=== PATIENT | male | born 1960 | race African-American/Black ===

== ENCOUNTER 2019-10-08 20:04 | Inpatient (IN) | payer OTHER ==
[~2019-10-08] VITALS: Ht 182.9 cm; Wt 97.4 kg
[2019-10-08 20:04] VITALS: BP 148/89
[2019-10-08 20:14] LABS: ABSOLUTE NEUTROPHILS 3.3 thou/uL (1.4-8.2); BASOPHILS 1.4 % (0.0-2.0); EOSINOPHILS 1.1 % (0.0-3.0); HEMOGLOBIN 11.3 gm/dL (14.0-18.0); LYMPHOCYTES 45.5 % (24.0-44.0); MCH 25.8 pg (26.0-34.0); MCHC 32.2 g/dL (28.0-37.0); MCV 80.1 fL (80.0-100.0); MONOCYTES 9.3 % (1.0-8.0); PLATELET COUNT 398 thou/uL (150-400); POLYS 42.7 % (36.0-66.0); RBC 4.38 mil/uL (4.50-6.00); RDW 16.7 % (10.5-14.5); WBC 7.7 thou/uL (4.0-11.0)
[2019-10-08 20:23] LABS: ANION GAP 13 mmol/L (7-16); BUN 15 mg/dL (7-18); CALCIUM 8.4 mg/dL (8.5-10.1); CHLORIDE 104 mmol/L (98-107); CO2 24 mmol/L (21-32); GLUCOSE 129 mg/dL (74-106); POTASSIUM 3.2 mmol/L (3.5-5.1); SODIUM 141 mmol/L (136-145)
[2019-10-08 20:33] LABS: ALBUMIN 3.6 g/dL (3.4-5.0); SGOT 17 U/L (15-37); SGPT 25 U/L (30-65); TOTAL BILIRUBIN 0.1 mg/dL (<0.1-1.0); TOTAL PROTEIN 7.4 g/dL (6.4-8.2); TROPONIN-I <0.06 ng/mL (<0.06)
[2019-10-08 23:52] VITALS: BP 168/88
[2019-10-08 23:54] VITALS: BP 180/93
[2019-10-09] VITALS (18 sets, daily range): BP systolic 120–199; BP diastolic 66–129
[2019-10-09] MEDS ORDERED: CREON DR 12,001 EACH PO ×2 (01:29→15:11)
[2019-10-09] MEDS ORDERED: ASA81BEC PO (01:30)
[2019-10-09] MEDS ORDERED: VITAMIN B-121000 MC2 SUBLING (01:30)
[2019-10-09] MEDS ORDERED: DILTIAZEM ER180 M2 PO (01:31)
[2019-10-09] MEDS ORDERED: VITAMIN D325 MC1 PO (01:39)
[2019-10-09] MEDS ORDERED: IMDUR 60 MG TAB60 M1 PO (01:41)
[2019-10-09] MEDS ORDERED: TRICOR48 MG PO (01:42)
[2019-10-09] MEDS ORDERED: PANTOPRAZOLE SO40 M1 PO (01:42)
[2019-10-09] MEDS ORDERED: PLAVIX 75 MG TA75 MG PO (01:43)
[2019-10-09] MEDS ORDERED: HYDROCHLOROTHIA25 M1 PO (01:43)
[2019-10-09] MEDS ORDERED: COREG25 M1 PO (01:44)
[2019-10-09] MEDS ORDERED: LYRICA 50 MG50 MG PO (01:45)
[2019-10-09] MEDS ORDERED: COZAAR 25 MG TA25 MG PO (01:46)
[2019-10-09] MEDS ORDERED: BUPROPION XL300 MG PO (01:47)
--- NOTE | 2019-10-09 02:33 | NUR ---
PT WAS AN ER ADMIT. HE PRESENTED WITH CHEST PAIN FROM HOME. PT CONTINUED TO HAVE CHEST PAIN UPON ARRIVAL TO THE FLOOR WITH VOMITING. PT RATES CHEST PAIN AT AT 10. PHYSICAL THERAPY NURSE PRACTITIONER NOTITED, EKG OBTAINED WHICH SHOWED SINUS TACHCARDIA. NITROGLYCERIN AND MORPHINE ADMINISTERED TO PT. CARDIOLOGY NOTIFIED. NO ORDERS RECEIVED. AFTER THREE DOSES OF NITROGLYCERIN, PT VERBALIZES RELIEF. PT IS STABLE. PT IS ALERT AND ORIENTED. PT IS STABLE. ADMISSION ASSESSMENT AND EDUCATION COMPLETED. LOW POTASSIUM NOTED AND IS REPLACED. PT IS NPO. SCHEDULED MEDS ADMINISTERED TO PT. TOLERTED PO INTAKE. MONITOR PATIENT THROUGHOUT THE NIGHT. NO FURTHER NEEDS REQUESTED AT THIS TIME.
[2019-10-09 04:58] LABS: ANION GAP 11 mmol/L (7-16); BUN 13 mg/dL (7-18); CALCIUM 8.9 mg/dL (8.5-10.1); CHLORIDE 103 mmol/L (98-107); CHOLESTEROL 148 mg/dL (<200); CO2 26 mmol/L (21-32); CREATININE 0.9 mg/dL (0.7-1.3); GLUCOSE 168 mg/dL (74-106); HDL CHOLESTEROL 19 mg/dL (>40); POTASSIUM 3.5 mmol/L (3.5-5.1); SODIUM 140 mmol/L (136-145); TC:HDL 7.8 Ratio (Not establshd); TRIGLYCERIDE 700 mg/dL (<150); TROPONIN-I 0.11 ng/mL (<0.06); VLDL 140 mg/dL (<40)
[2019-10-09 05:49] LABS: SERUM ASSESSMENT Clear
[2019-10-09] MEDS ORDERED: BENICAR40 MG PO (10:02)
[2019-10-09] MEDS ORDERED: ASPIRIN325 PO (10:02)
--- NOTE | 2019-10-09 10:26 | CATHLAB ---
[facility] [address] [place] [address] INVASIVE PROCEDURE REPORT Name: CELIO FLYNN Room #: 218-P ADM IN M.R.#: [id number] Admission: 10/08/19 Attend Phys: Breanna Osborne Discharge: Date of : 62 Report #: [id number] THIS REPORT FOR: cc: Bola Jeff MD, Jan MD Lundgren, Craig H. MD [facility] ~ APPROVED REPORT Study performed: 10/09/2019 07:51:19 Patient Details Patient Status: In-Patient Room #: The patient is a 59 year-old male Event Personnel Dutch Johnson Sales Team Manager, Ilana Loyd RTR, FILM LIBRARIAN Monitor, Danie Mcarthur RN, Kenzie Ornelas Procedures Performed Art Access - R femoral artery* Left Heart Cath w/or w/o Coronaries [id number] [facility] LUPE Place w/wo Plasty Single LAD 540983 LUPE Place w/wo Plasty Single RCA 100683 26256 Initial Mod Sed Same Phys/QHP Gr5y 598724 21147 Mod Sed Same Phys/QHP Ea 596940 Hemostasis w/ Mynx 12834 Mod Sed Same Phys/QHP Ea 424463 80782 Mod Sed Same Phys/QHP Ea 507658 69153 Mod Sed Same Phys/QHP Ea 663040 Indication Chest pain Procedure Narrative The Right Groin^ was infiltrated with 1% Lidocaine subcutaneous anesthesia. A PINNACLE 6FR Sheath #[id number] sheath was inserted into the RFA^. Coronary angiography was performed using coronary diagnostic catheters. The right coronary system was accessed and visualized with a JR4 catheter. The left coronary system was accessed and visualized with a JL4 catheter. The left ventricle was accessed and visualized with a angled pigtail catheter. Left ventricular/Aortic Valve gradient assessed via catheter pullback. Left ventriculogram was performed in 30 degree projection. Closure device was deployed with a 6 Fr MYNXGRIP 6/7F #[id number]. The patient tolerated the procedure well and there were no complications associated with the procedure. There was no hematoma. Intraoperative Conscious Sedation [facility] [address] [place] [address] INVASIVE PROCEDURE REPORT Name: CELIO FLYNN Room #: 218-P [facility] IN .R.#: [id number] Admission: 10/08/19 Attend Phys: Breanna Moses Discharge: Date of : 62 Report #: [id number] Sedation start time: 08:06 Case end Time: 09:37 Fentanyl 200 mcg Versed 3 mg Fluoro Time: 9.49 minutes Dose: DAP 70424.80 cGycm2 1567 mGy Contrast Type and Amount: Omnipaque 235 ml Coronary Angiography The patient's coronary anatomy is right dominant. Diagnostic Cath Left Main Normal left main LAD Proximal LAD stent with mild intrastent plaquing. Tubular 30 to 40% proximal LAD stenosis, proximal to the old stent. Severe diffuse disease with several high-grade 99% stenoses in the midportion of the LAD Diagonal 1 Moderate sized first diagonal branch with 50% ostial stenosis Circumflex Large but nondominant circumflex OM1 Moderate sized first marginal branch with mild proximal plaquing, 20-30% OM2 Small terminal marginal branch, angiographically normal Right Coronary Dominant right coronary with previously placed mid vessel stent, 85% IntraStent stenosis 50% distal right coronary stenosis R PDA Moderate size posterior descending with mild plaquing RPLV "Thready" posterior lateral branch, small in caliber, diffusely diseased Left Ventriculography The left ventricle is normal in size with abnormal contractility. The left ventricular ejection fraction is estimated to be 40-45%. Left ventricular wall motion abnormalities are present. There is no mitral insufficiency. Hypokinesis involving the distal anterolateral, apical, and inferoapical finnegan. Hemodynamics The aortic pressure is 171/88 mmHg with a mean of 123 mmHg. The left ventricular pressure is 199/7 mmHg with a mean of mmHg. The left ventricular end diastolic pressure is 39 mmHg. PCI Technique Lesion Anticoagulation was achieved with Heparin, Integrilin. Patient was preloaded with Plavix. Percutaneous coronary intervention was [facility] [address] [place] [address] INVASIVE PROCEDURE REPORT Name: CELIO FLYNN Room #: 218-P [facility] IN M.R.#: [id number] Admission: 10/08/19 Attend Phys: Breanna Moses Discharge: Date of : 62 Report #: [id number] performed on the mid left anterior descending artery segment. The lesion stenosis prior to intervention was 99% with DAVON 2 flow. A LAUNCHER 6FR EBU 3.5 #[id number] Guide Catheter was used to engage the ostium. A Luge Wire .014 x 182CM #[id number] Interventional Guidewire was used to cross the lesion. BALLOON DILATION A Balloon catheter Euphora RX 2.0 x 15 #[id number] was inserted and inflated up to 8.00atm for 27seconds. Additional Inflation: 8.00atm for 29seconds. Additional Inflation: 8.00atm for 31seconds. Additional Inflation: 8 jose for 32 seconds Additional Inflation: 10 jose for 31 seconds STENT DEPLOYMENT A drug-eluting stent RESOLUTE TOMMIE RX 2.5 X 38 #[id number] was inserted and inflated up to 15.00atm for 30seconds. POST STENT DEPLOYMENT BALLOON DILATION A Balloon catheter TREK NC RX 2.5 X 15 #[id number] was inserted and inflated up to 16.00atm for 30seconds. Additional Inflation: 22.00atm for 38seconds. Additional Inflation: 22.00atm for 32seconds. Additional Inflation: 22 jose for 30 seconds Final angiography reveals 0 % stenosis with DAVON 3 flow. PCI Technique Lesion 2 Percutaneous Coronary Intervention was performed on the mid right coronary artery. The lesion stenosis prior to intervention was 85% with DAVON 3 flow. A LAUNCHER 6FR JR 4 #[id number] Guide Catheter was used to engage the ostium. A Luge Wire .014 x 182CM #[id number] Interventional Guidewire was used to cross the lesion. Balloon Dilation A Balloon catheter TREK NC RX 2.5 X 15 #[id number] was inserted and inflated up to 12.00atm for 43seconds. Stent Deployment A drug-eluting stent RESOLUTE TOMMIE RX 3.0 X 26 #[id number] was inserted and inflated up to 15.00atm for 36seconds. Post Stent Deployment Balloon Dilation A Balloon catheter TREK NC RX 3.0 X 15 #[id number] was inserted and inflated up to 18.00atm for 29seconds. Additional Inflation: 18.00atm for 30seconds. Additional Inflation: 20.00atm for 26seconds. Final angiography reveals 0 % stenosis with DAVON 3 [facility] [address] [address] INVASIVE PROCEDURE REPORT Name: CELIO FLYNN Room #: 218-P ADM IN M.R.#: [id number] Admission: 10/08/19 Attend Phys: Breanna Moses Discharge: Date of : 62 Report #: [id number] flow. Conclusion 1. Moderate left ventricular dysfunction with distal anterolateral, apical, and inferoapical hypokinesis. Ejection fraction 40-45% 2. Normal left main 3. Critical, long mid LAD stenosis, treated with a 2.5 x 38 mm Resolute stent dilated to close to 2.75 mm 4. Mild plaquing in a moderate sized nondominant circumflex 5. Severe mid right coronary stenosis within a remotely placed mid right coronary stent. Successfully ballooned and restented with a 3.0 x 26 mm Resolute stent Recommendations Smoking Cessation Cardiac Rehabilitation Referral Aggressive Medical Therapy <ELECTRONICALLY SIGNED> By: Dutch Johnson MD, FACC 10/09/19 1024 1024 1024 Dutch Johnson MD, FACC /INF
--- NOTE | 2019-10-09 13:55 | 2DMMODE ---
[facility] [place] [address] 2 D/M-MODE ECHOCARDIOGRAM Name: CELIO FLYNN Room #: 218-P ADM IN M.R.#: [id number] Admission: 10/08/19 Attend Phys: Breanna Osborne Discharge: Date of : 62 Report #: [id number] THIS REPORT FOR: cc: Bola Jeff MD,Bola Johnson,Dutch Tristan MD [facility] ~ APPROVED REPORT Study performed: 10/09/2019 12:57:42 EXAM: Comprehensive 2D, Doppler, and color-flow Echocardiogram Patient Location: Bedside Room #: 218 Status: routine BSA: 2.20 HR: 92 bpm BP: 155/82 mmHg Rhythm: NSR Other Information Study Quality: Good Indications Chest Pain status post PCI today. Hx: CT, stents, PVD, HTN, HLP, tobacco abuse. Echo Enhancing Agent Indication: Endocardial border delineation Agent(s) / Amount(s) Used: Optison 7 cc 2D Dimensions RVDd: 34.77 mm IVSd: 10.01 (7-11mm) LVOT Diam: 22.20 (18-24mm) LVDd: 45.85 mm PWd: 9.38 (7-11mm) LVDs: 30.55 (25-40mm) Aortic Root: 36.63 mm Volumes Left Atrial Volume (Systole) Single Plane 4CH: 34.70 mL Single Plane 2CH: 44.65 mL LA ESV Index: 19.00 mL/m2 [facility] [address] [place] [address] 2 D/M-MODE ECHOCARDIOGRAM Name: CELIO FLYNN Room #: 218-P ADM IN M.R.#: [id number] Admission: 10/08/19 Attend Phys: Breanna Moses Discharge: Date of : 62 Report #: [id number] Aortic Valve AoV Peak Ari.: 1.39 m/s AO Peak Gr.: 7.72 mmHg LVOT Max P.90 mmHg LVOT Max V: 1.11 m/s JUANCARLOS Vmax: 3.08 cm2 Mitral Valve E/A Ratio: 0.6 MV Decel. Time: 253.32 ms MV E Max Ari.: 0.57 m/s MV A Ari.: 0.95 m/s MV PHT: 73.46 ms IVRT: 94.58 ms Pulmonary Valve PV Peak Ari.: 0.89 m/s PV Peak Gr.: 3.15 mmHg Pulmonary Vein P Vein S: 0.57 m/s P Vein A: 0.31 m/s P Vein D: 0.39 m/s P Vein A Dur.: 100.3 msec P Vein S/D Ratio: 1.46 Tricuspid Valve RAP Estimate: 5.00 mmHg Left Ventricle The left ventricle is normal size. There is normal left ventricular wall thickness. Left ventricular systolic function is mildly reduced. False tendon at or near the apex. LVEF is 50%. Hypokinesis involving the distal septum and apex Mild diastolic dysfunction Right Ventricle The right ventricle is normal size. The right ventricular systolic function is normal. Atria The left atrium size is normal. The right atrium size is normal. Aortic Valve The aortic valve is normal in structure. No aortic regurgitation is present. There is no aortic valvular stenosis. Mitral Valve The mitral valve is normal in structure. There is no mitral valve regurgitation noted. No evidence of mitral valve stenosis. [facility] [address] [place] [address] 2 D/M-MODE ECHOCARDIOGRAM Name: CELIO FLYNN Room #: 218-P ADM IN M.R.#: [id number] Admission: 10/08/19 Attend Phys: Breanna Moses Discharge: Date of : 62 Report #: [id number] Tricuspid Valve The tricuspid valve is normal in structure. There is no tricuspid valve regurgitation noted. Unable to assess PA pressure. Pulmonic Valve The pulmonary valve is normal in structure. Trace pulmonic regurgitation. Great Vessels The aortic root is normal in size. The ascending aorta is normal in size. IVC is normal in size and collapses >50% with inspiration. Pericardium There is no pericardial effusion. <Conclusion> Left ventricular systolic function is mildly reduced. False tendon at or near the apex. LVEF is 50%. Hypokinesis involving the distal septum and apex Mild diastolic dysfunction The aortic valve is normal in structure. No aortic regurgitation or stenosis The mitral valve is normal in structure. No mitral valve regurgitation. Unable to assess pulmonary artery pressure. There is no pericardial effusion. <ELECTRONICALLY SIGNED> By: Dutch Johnson MD, FACC 10/09/19 1353 1353 1353 Dutch Johnson MD, FACC /INF
--- NOTE | 2019-10-09 16:08 | NUR ---
Chart reviewed and case discussed with the care team. University Registrar visited with the pt via phone this afternoon. Pt had heart cath this am with 2 stents. The pt indicates that he is normally indep with gait and adl's. He has a long cardiac hx and gets all of his medical care through the [facility]. He has been on SS disability since 2008. He does not have [place] medicaid as he can not afford the spend down. [facility] and several specialist there including cardiology. He denies any dc needs or concerns and is hoping he can go home tomorrow. [facility]. No cm interventions noted at this time. Will have [facility] fax a copy of [facility].
--- NOTE | 2019-10-09 17:25 | NUR ---
ASSUMED CARE 0700, ALERTS X4, FROM HOME. ADMITTED FOR CHEST PAIN, CARDIAC STENT PLACED LED AND RCA. RIGHT GROIN SIGHT. COMPLIED WITH POST CARDIAC CARE. DENIES CHEST PAIN, DENIES SOB, GROIN SITE C/D/I, VSS. PT TO DC HOME WITH SELF CARE IN MORNING. SCRIPT ON CHART, HOME MEDS IN PHARMACY. PERSONAL ITEMS IN REACH. CALLS FOR ASSISTANCE.
[2019-10-10 00:45] VITALS: BP 156/79
[2019-10-10 02:07] LABS: GLYCOHEMOGLOBIN (HGB A1C) 5.6 % (4.8-5.6)
[2019-10-10 03:41] LABS: HEMATOCRIT 35.3 % (42.0-52.0); HEMOGLOBIN 11.1 gm/dL (14.0-18.0); MCH 25.2 pg (26.0-34.0); MCHC 31.4 g/dL (28.0-37.0); MCV 80.1 fL (80.0-100.0); RBC 4.4 mil/uL (4.50-6.00); RDW 16.8 % (10.5-14.5); WBC 11.3 thou/uL (4.0-11.0)
[2019-10-10 04:04] LABS: ALBUMIN 3.2 g/dL (3.4-5.0); CALCIUM 8.9 mg/dL (8.5-10.1); CREATININE 0.9 mg/dL (0.7-1.3); POTASSIUM 3.9 mmol/L (3.5-5.1); TOTAL BILIRUBIN 0.2 mg/dL (<0.1-1.0); TROPONIN-I 0.57 ng/mL (<0.06)
[2019-10-10 04:45] VITALS: BP 166/84
--- NOTE | 2019-10-10 07:11 | NUR ---
ASSUME CARE 1900. PT/VITALS STABLE. DENIES ANY PAIN. TOLERATES ACTIVITY WELL. PT IS UP AD LI AND INDEPENDENT. ASSESSMENT CHARTED. PROGRESSING WELL WITH POC. SR ON MONITOR. ADEQUATE REST WITH NO DISTRESS NOTED THROUGH THE NIGHT. PLAN IS POSSIBLE DISCHARGE TODAY. WILL CONTINUE TO MONITOR AND FOLLOW WITH POC
[2019-10-10 08:00] VITALS: BP 152/82
[2019-10-10] MEDS ORDERED: GLUCOPHAGE500 MG PO (11:47)
[2019-10-10] MEDS ORDERED: ACETAMINOPHEN325 M1 PO (11:47)
[2019-10-10] MEDS ORDERED: BENICAR40 MG PO (11:47)
--- NOTE | 2019-10-10 11:48 | EKG ---
[facility] [place] [address] ELECTROCARDIOGRAM REPORT Name: CELIO FLYNN Room #: 218-P ADM IN M.R.#: [id number] Admission: 10/08/19 Attend Phys: Breanna Osborne Discharge: Date of : 62 Report #: [id number] THIS REPORT FOR: cc: Bola Jeff MD, Jan MD Couchonnal,Kennedy Vasques MD ~ THIS REPORT FOR: //name// [facility] ED Test Date: 2019-10-08 Test Time: 20:18:16 Pat Name: CELIO FLYNN Department: Room: [facility] Gender: M Scale Clerk: [facility] : 1960 Requested By: Adrián Calderon Order Number: [id number] MD: Kennedy Alcala Measurements Intervals [place] Rate: 103 P: 74 [place]: 134 QRS: 63 QRSD: 97 T: 64 QT: 341 QTc: 447 Interpretive Statements Sinus tachycardia Nonspecific repol abnormality, lateral leads No previous ECG available for comparison Electronically Signed On 10-10-2019 11:46:39 CDT by Kennedy Alcala [email or web address] <ELECTRONICALLY SIGNED> By: Kennedy Alcala MD 10/10/19 1146 17 17 Kennedy Alcala MD /MARTI
--- NOTE | 2019-10-10 11:48 | EKG ---
[facility] [place] [address] ELECTROCARDIOGRAM REPORT Name: CELIO FLYNN Room #: 218-P ADM IN M.R.#: [id number] Admission: 10/08/19 Attend Phys: Breanna Osborne Discharge: Date of : 62 Report #: [id number] THIS REPORT FOR: cc: Bola Jeff MD, Jan MD Couchonnal,Kennedy Vasques MD ~ THIS REPORT FOR: //name// [facility] ED Test Date: 2019-10-08 Test Time: 20:04:52 Pat Name: CELIO FLYNN Department: Room: [facility] Gender: M [place] Reverse Winder: [facility] : 1960 Requested By: Adrián Calderon Order Number: [id number] MD: Kennedy Alcala Measurements Intervals [place] Rate: 107 P: 75 MT: 131 QRS: 69 QRSD: 96 T: 60 QT: 336 QTc: 449 Interpretive Statements Sinus tachycardia Baseline wander in lead(s) V1 No previous ECG available for comparison Electronically Signed On 10-10-2019 11:46:32 CDT by Kennedy Alcala [email or web address] <ELECTRONICALLY SIGNED> By: Kennedy Alcala MD 10/10/19 1146 03 03 Kennedy Alcala MD /MARTI
--- NOTE | 2019-10-10 11:48 | EKG ---
[facility] [place] [address] ELECTROCARDIOGRAM REPORT Name: CELIO FLYNN Room #: 218-P ADM IN M.R.#: [id number] Admission: 10/08/19 Attend Phys: Breanna Osborne Discharge: Date of : 62 Report #: [id number] THIS REPORT FOR: cc: Bola Jeff MD, Jan MD Couchonnal, Luis F. 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: [facility] : 1960 Requested By: Adrián Calderon Order Number: [id number] MD: Kennedy Alcala Measurements Intervals [place] Rate: 112 P: 81 NE: 132 QRS: 76 QRSD: 97 T: 68 QT: 323 QTc: 441 Interpretive Statements Sinus tachycardia Anterolateral infarct, age indeterminate Baseline wander in lead(s) V4,V6 No previous ECG available for comparison Electronically Signed On 10-10-2019 11:46:43 CDT by Kennedy Alcala [email or web address] <ELECTRONICALLY SIGNED> By: Kennedy Alcala MD 10/10/19 1146 26 26 Kennedy Alcala MD /EPI
--- NOTE | 2019-10-10 11:49 | EKG ---
[facility] [place] [address] ELECTROCARDIOGRAM REPORT Name: CELIO FLYNN Room #: 218-P ADM IN M.R.#: [id number] Admission: 10/08/19 Attend Phys: Breanna Osborne Discharge: Date of : 62 Report #: [id number] THIS REPORT FOR: cc: Bola Jeff MD, Jan MD Couchonnal, Luis F. MD ~ THIS REPORT FOR: //name// [facility] ED Test Date: 2019-10-08 Test Time: 21:47:11 Pat Name: CELIO FLYNN Department: Room: 218 P Gender: Male Home Help Aide: [facility] : 1960 Requested By: Adrián Calderon Order Number: [id number] MD: Kennedy Alcala Measurements Intervals [place] Rate: 99 P: 71 GA: 133 QRS: 57 QRSD: 96 T: 57 QT: 315 QTc: 405 Interpretive Statements Sinus rhythm Nonspecific T abnormalities, lateral leads No previous ECG available for comparison Electronically Signed On 10-10-2019 11:47:49 CDT by Kennedy Alcala [email or web address] <ELECTRONICALLY SIGNED> By: Kennedy Alcala MD 10/10/19 1147 46 46 Kennedy Alcala MD /MARTI
--- NOTE | 2019-10-10 11:51 | EKG ---
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
--- NOTE | 2019-10-10 11:53 | EKG ---
[facility] [place] [address] ELECTROCARDIOGRAM REPORT Name: CELIO FLYNN Room #: 218-P ADM IN M.R.#: [id number] Admission: 10/08/19 Attend Phys: Breanna Osborne Discharge: Date of : 62 Report #: [id number] THIS REPORT FOR: cc: Bola Jeff MD, Jan MD Couchonnal,Kennedy Vasques MD ~ THIS REPORT FOR: //name// [facility] Test Date: 2019-10-09 Test Time: 11:27:58 Pat Name: CELIO FLYNN Department: Room: 218 P Gender: M Research Associate Policy: T[employer] : 1960 Requested By: Dutch Johnson Order Number: [id number] MD: Kennedy Alcala Measurements Intervals [place] Rate: 97 P: 65 ME: 130 QRS: 60 QRSD: 93 T: -85 QT: 389 QTc: 494 Interpretive Statements Sinus rhythm Probable left atrial enlargement Inferior infarct, old Abnrm T, consider ischemia, anterolateral lds No previous ECG available for comparison Electronically Signed On 10-10-2019 11:52:19 CDT by Kennedy Alcala [email or web address] <ELECTRONICALLY SIGNED> By: Kennedy Alcala MD 10/10/19 1152 1127 1127 Kennedy Alcala MD /EPI
--- NOTE | 2019-10-10 11:56 | EKG ---
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 [employer]IN : 1960 Requested By: Dutch Johnson Order Number: [id number] MD: Kennedy Alcala Measurements Intervals [place] Rate: 86 P: 71 [place]: 128 QRS: 54 QRSD: 92 T: 211 QT: 426 QTc: 510 Interpretive Statements Sinus rhythm Probable left atrial enlargement Abnrm T, probable ischemia, anterolateral lds Prolonged QT interval No previous ECG available for comparison Electronically Signed On 10-10-2019 11:54:43 CDT by Kennedy Alcala [email or web address] <ELECTRONICALLY SIGNED> By: Kennedy Alcala MD 10/10/19 1154 0739 0739 Kennedy Alcala MD /EPI
[2019-10-10 12:06] VITALS: BP 152/84
--- NOTE | 2019-10-10 13:05 | NUR ---
ASSUMED CARE 0700. ALERT 4, RIGHT GROIN SITE C/D/I REVIEWED POST CARDIAC CATH CARE. PT DC HOME WITH SELF CARE. REVIEWED NEW MEDICATIONS WITH EDUCATION PAPERS AND DISCHARGE PAPERS. IV AND TELE REMOVED.
== END 2019-10-10 13:31 | disposition home or self-care (01) | DRG 246 ==
LOC: ER 20:04 → 2N 23:26 → EROBS 23:26 → 2N 23:55
PROVIDERS: Emergency Medicine; Internal Medicine; Nurse Practitioner Family; ADMIT Hospitalist
PROC: 027135Z Dilation of Coronary Artery, Two Arteries with Two Drug-eluting Intraluminal Devices, Percutaneous Approach (ICD-10-PCS; principal; 2019-10-09)
PROC: 4A023N7 Measurement of Cardiac Sampling and Pressure, Left Heart, Percutaneous Approach (ICD-10-PCS; principal; 2019-10-09)
PROC: 3E073PZ Introduction of Platelet Inhibitor into Coronary Artery, Percutaneous Approach (ICD-10-PCS; principal; 2019-10-09)
PROC: B2111ZZ Fluoroscopy of Multiple Coronary Arteries using Low Osmolar Contrast (ICD-10-PCS; principal; 2019-10-09)
PROC: B2151ZZ Fluoroscopy of Left Heart using Low Osmolar Contrast (ICD-10-PCS; principal; 2019-10-09)
DX: I25.110 Atherosclerotic heart disease of native coronary artery with unstable angina pectoris (principal); I50.43 Acute on chronic combined systolic (congestive) and diastolic (congestive) heart failure; E11.51 Type 2 diabetes mellitus with diabetic peripheral angiopathy without gangrene; F17.210 Nicotine dependence, cigarettes, uncomplicated; I11.0 Hypertensive heart disease with heart failure; E11.40 Type 2 diabetes mellitus with diabetic neuropathy, unspecified; E78.5 Hyperlipidemia, unspecified; I25.2 Old myocardial infarction; Z95.5 Presence of coronary angioplasty implant and graft; Z88.8 Allergy status to other drugs, medicaments and biological substances; Z91.041 Radiographic dye allergy status; Z72.89 Other problems related to lifestyle
CPT/HCPCS: 10081